=== PATIENT | female | born 1965 | race Caucasian/White ===

== ENCOUNTER 2016-10-03 16:14 | Emergency (ER) | payer OTHER ==
[~2016-10-03] VITALS: Ht 157.5 cm; Wt 54.4 kg
--- NOTE | 2016-10-03 17:14 | Emergency Room Report ---
History of Present Illness General Chief Complaint: Skin Rash/Abscess Source: Patient Present Illness HPI 50YOF walk-in with 1 week of "bites" to neck, torso, upper/lower extremities. No sick contacts at home Doesnt remember seeing insect Denies fever/chills Scratched ones on arms and "popped." Denies vesicles, blisters Denies recent Abx Allergies: Coded Allergies: No Known Allergies (Unverified , 10/03/16) Patient History Past Medical History: none Past Surgical History: none Pertinent Family History: none Social History: Denies: alcohol use, drug use, smoking Now: No Immunizations: UTD Reviewed Nursing Documentation: PMH: Agreed, PSxH: Agreed Nursing Documentation-PMH Hx Asthma: Yes Review of Systems All Other Systems: negative except mentioned in HPI Physical Exam Vital Signs Date Time Temp Pulse Resp B/P Pulse Ox O2 Delivery O2 Flow Rate FiO2 10/03/16 16:17 98.2 65 14 107/66 100 Room Air Sp02 EP Interpretation: reviewed, normal General Appearance: normal inspection, well appearing, no apparent distress, alert, GCS 15, non-toxic Head: normocephalic, atraumatic Eyes: bilateral eye EOMI, bilateral eye PERRL ENT: normal ENT inspection, hearing grossly normal, normal voice Neck: normal inspection, full range of motion, supple, no bony tend Respiratory: normal inspection, lungs clear, normal breath sounds, no respiratory distress, no retraction, no wheezing Cardiovascular #1: regular rate, rhythm, no edema Gastrointestinal: normal inspection, normal bowel sounds, non tender, soft, no guarding, no hernia Genitourinary: no CVA tenderness Musculoskeletal: normal inspection, back normal, normal range of motion, Vincenzo' s Sign negative Neurologic: normal inspection, alert, oriented x3, responsive, dobby looms pegger III-XII nml as tested, motor strength/tone normal, speech normal Psychiatric: normal inspection, judgement/insight normal, mood/affect normal Skin: normal inspection, normal color, warm/dry, palpation normal, other - Multiple areas of singular raised erythema to back of right shoulder, bilateral lower extremities with excoriations Medical Decision Making Diagnostic Impression: Primary Impression: Rash and other nonspecific skin eruption ER Course Likely allergic reaction to insect bites No blisters, vesicles Afebrile Patient doesnt want Abx and I agree, localized reaction, not really cellulitic and less likely abscess Advised OTC bendaryl, ice PMD followup as needed DC Last Vital Signs Date Time Temp Pulse Resp B/P Pulse Ox O2 Delivery O2 Flow Rate FiO2 10/03/16 16:17 98.2 65 14 107/66 100 Room Air Status: improved Disposition: HOME, SELF-CARE Condition: Improved Patient Instructions: Pruritus Additional Instructions: - Insect bite allergic reaction - Take benadryl as needed for itch, swelling - Also apply ice to affected areas to reduce swelling - You are NOT contagious or infectious to others. MACEY SRIVASTAVA M.D. Oct 03, 2016 17:13
[2016-10-03 17:20] VITALS: BP 107/66
[2016-10-03 17:22] VITALS: BP 107/66
== END 2016-10-03 17:10 | disposition home or self-care (01) ==
LOC: EMR 16:40
DX: R21 Rash and other nonspecific skin eruption (principal); J45.909 Unspecified asthma, uncomplicated
CPT/HCPCS: 99282

== ENCOUNTER 2016-10-17 22:08 | Emergency (ER) | payer OTHER ==
[~2016-10-17] VITALS: Ht 160 cm; Wt 49.9 kg
[2016-10-17 22:40] VITALS: BP 101/55
[2016-10-17] MEDS ORDERED: ANTI-ITCH56 GM TP (22:48)
[2016-10-17] MEDS ORDERED: PERMETHRIN60 GM TOPIC (22:48)
[2016-10-17 23:00] VITALS: BP 101/55
--- NOTE | 2016-10-23 05:43 | Emergency Room Report ---
History of Present Illness General Chief Complaint: Skin Rash/Abscess Source: Patient Present Illness HPI Patient's 50-year-old female who presented for increased generalized rash. The patient had gradual onset of symptoms. Rash as described as itchy in nature. This appear to be predominantly on her extremities. Previous prescription and had not been effective. She had not been having any fever. She denied any prior history of immunocompromise. She denied any other complaints this time. She denied any difficulty breathing. Allergies: Coded Allergies: No Known Allergies (Unverified , 10/03/16) Patient History Past Medical History: see triage record Reviewed Nursing Documentation: PMH: Agreed, PSxH: Agreed Nursing Documentation-PMH Past Medical History: No History, Except For Hx Asthma: Yes Review of Systems All Other Systems: negative except mentioned in HPI Physical Exam Vital Signs Date Time Temp Pulse Resp B/P Pulse Ox O2 Delivery O2 Flow Rate FiO2 10/17/16 22:30 97.9 68 16 98/45 100 Room Air General Appearance: well appearing, no apparent distress, alert, GCS 15, thin Head: normocephalic, atraumatic ENT: hearing grossly normal, normal voice Neck: full range of motion, supple Respiratory: no respiratory distress, speaking full sentences Cardiovascular #1: normal inspection Gastrointestinal: normal inspection Musculoskeletal: normal inspection, back normal, no calf tenderness Neurologic: normal inspection, alert, oriented x3, responsive, cutter grinder III-XII nml as tested, normal gait Psychiatric: mood/affect normal Skin: rash - slight papular rash to extremities with excoriations Medical Decision Making Diagnostic Impression: Primary Impression: Dermatitis ER Course Patient presented for for skin rash. Differential diagnosis included was not limited to Earl-Jamaal syndrome, scabies, urticaria, erythema multiforme, contact dermatitis. Patient's benign exam and does not appear to require any further imaging or laboratory testing at this time. The patient was given a prescription for topical steroids as well as permethrin cream. The patient appears to have some evidence of a distribution consistent with scabies. The patient was advised followup with primary care physician for reexamination. The patient was also advised to return if she began having any concerning signs or symptoms. Last Vital Signs Date Time Temp Pulse Resp B/P Pulse Ox O2 Delivery O2 Flow Rate FiO2 10/17/16 23:00 97.8 78 15 101/55 100 Room Air Status: improved Disposition: HOME, SELF-CARE Condition: Stable Scripts Permethrin* (ELIMITE*) 60 Gm Cream..g. 1 APPLIC TOPIC ONCE, #1 TUBE 0 Refills Apply cream from head to toe; leave on for 8-14 hours before washing off with water Prov: Christian Martinez 10/17/16 Hydrocortisone 2% Cream (ANTI-ITCH 2% CREAM) Y Cr 56 GM TP TWICE A DAY, #30 GM Prov: Christian Martinez 10/17/16 Referrals: [facility],REFERRING (PCP) Patient Instructions: Christian De La Cruz Oct 23, 2016 05:42
== END 2016-10-17 23:00 | disposition home or self-care (01) ==
LOC: EMR 22:57
DX: L30.9 Dermatitis, unspecified (principal)
CPT/HCPCS: 99284

== ENCOUNTER 2017-01-07 18:01 | Emergency (ER) | payer OTHER ==
[~2017-01-07] VITALS: Ht 160 cm; Wt 49.9 kg
[~2017-01-07 18:01] MED LIST: ANTI-ITCH56 GM TP; PERMETHRIN60 GM TOPIC
[2017-01-07 19:16] VITALS: BP 102/68
--- NOTE | 2017-01-07 19:21 | Emergency Room Report ---
History of Present Illness General Chief Complaint: General Complaint Source: Patient Present Illness HPI 51-year-old female presents to the emergency department complaining of difficulty sleeping for months. Patient states she had previous diagnosis of insomnia and was prescribed Ambien however she currently does not have medical insurance and therefore cannot be seen for her sleeping disorder. Patient states she has had increased amount of stress and is currently going through divorce. Patient dates she has had multiple trials of sleeping medications in the past and only Anaplanien worked for her. Patient denies SI, HI or substance use. Denies CP, Palpitations, LOC, AMS, dizziness, Changes in Vision, Sensation , paresthesias, or a sudden severe headache. Allergies: Coded Allergies: No Known Allergies (Unverified , 10/03/16) Patient History Past Medical History: see triage record Past Surgical History: none Pertinent Family History: none Now: No Immunizations: UTD Reviewed Nursing Documentation: PMH: Agreed, PSxH: Agreed Nursing Documentation-PMH Past Medical History: No History, Except For Hx Asthma: Yes Review of Systems All Other Systems: negative except mentioned in HPI Physical Exam Vital Signs Date Time Temp Pulse Resp B/P (MAP) Pulse Ox O2 Delivery O2 Flow Rate FiO2 01/07/17 18:15 98.2 70 18 102/68 99 Room Air Sp02 EP Interpretation: reviewed, normal General Appearance: no apparent distress, alert, GCS 15, non-toxic Head: normocephalic, atraumatic Eyes: bilateral eye normal inspection, bilateral eye PERRL ENT: hearing grossly normal, normal voice Neck: full range of motion Respiratory: lungs clear, normal breath sounds, speaking full sentences Cardiovascular #1: regular rate, rhythm Rectal: deferred Musculoskeletal: back normal, gait/station normal, normal range of motion Neurologic: alert, oriented x3, responsive, motor strength/tone normal, sensory intact, normal gait, speech normal Psychiatric: judgement/insight normal, memory normal, mood/affect normal, no suicidal/homicidal ideation Skin: normal color, no rash, warm/dry, well hydrated Medical Decision Making PA Attestation Dr. Martinez is my supervising Physician whom patient management has been discussed with. Diagnostic Impression: Primary Impression: Insomnia due to stress ER Course 51-year-old female presents to the emergency department complaining of difficulty sleeping for months. Patient states she had previous diagnosis of insomnia and was prescribed Ambien however she currently does not have medical insurance and therefore cannot be seen for her sleeping disorder. Patient states she has had increased amount of stress and is currently going through divorce. Patient dates she has had multiple trials of sleeping medications in the past and only Fatemehien worked for her. Patient denies SI, HI or substance use. Denies CP, Palpitations, LOC, AMS, dizziness, Changes in Vision, Sensation , paresthesias, or a sudden severe headache. Ddx considered but are not limited to: drug seeking, OD, insomnia, SI just to name a few. Vital signs: are WNL, pt. is afebrile H&PE are most consistent with need for medication refill. ORDERS: none required at this time, the diagnosis is clinical ED INTERVENTIONS: None required at this time. -Discussed with patient that it is recommended she be evaluated and medically managed by a primary care physician or psychiatric provider who can safely prescribe her sleeping aids, later basis. gave [facility] Information. DISCHARGE: At this time pt. is stable for d/c to home. Will provide printed patient care instructions, and any necessary prescriptions. Care plan and follow up instructions have been discussed with the patient prior to discharge. Last Vital Signs Date Time Temp Pulse Resp B/P (MAP) Pulse Ox O2 Delivery O2 Flow Rate FiO2 01/07/17 19:16 98.2 18 102/68 99 Room Air 01/07/17 18:15 70 Disposition: HOME, SELF-CARE Condition: Stable Scripts Hydroxyzine Pamoate* (VISTARIL*) 50 Mg Capsule 50 MG ORAL QHS, #15 TAB 0 Refills Prov: Afia Casillas 01/07/17 Referrals: [facility],REFERRING (PCP) Patient Instructions: Insomnia Additional Instructions: Take medications as directed. Follow up with a Primary Care Provider Or Psychiatric Provider in 3-5 days , even if your symptoms have resolved. --Please review list of primary care clinics, if you do not already have a primary care provider, Review [facility] information. Return sooner to ED if new symptoms occur, or current symptoms become worse. Do not drink alcohol, drive, or operate heavy machinery while taking VISTARIL / Hydroxyzine as this may cause drowsiness. - Please note that this Emergency Department Report was dictated using DishOpinionresolution expert technology software, occasionally this can lead to erroneous entry secondary to interpretation by the dictation equipment. Afia Casillas Jan 07, 2017 19:21
[2017-01-07] MEDS ORDERED: VISTARIL50 MG ORAL (19:24)
[2017-01-07 19:35] VITALS: BP 102/68
== END 2017-01-07 19:35 | disposition home or self-care (01) ==
LOC: EMR 18:58
DX: G47.00 Insomnia, unspecified (principal); F43.9 Reaction to severe stress, unspecified; J45.909 Unspecified asthma, uncomplicated
CPT/HCPCS: 99283

== ENCOUNTER 2017-04-04 08:27 | Emergency (ER) | payer OTHER ==
[~2017-04-04] VITALS: Ht 160 cm; Wt 54.4 kg
[~2017-04-04 08:27] MED LIST changes: +VISTARIL50 MG ORAL
[2017-04-04] MEDS ORDERED: FOSAMAX70 MG ORAL (08:33)
--- NOTE | 2017-04-04 08:54 | Emergency Room Report ---
History of Present Illness General Chief Complaint: Sore Throat Source: Patient Present Illness HPI Patient presents with complaints of sore throat Patient reports that sore throat has been ongoing since Wednesday Pain with swallowing 06/19 Denies any fevers or chills denies any posterior neck pain denies any photophobia Denies any chest pain or shortness of breath As his symptoms have persisted over the weekend she was concerned and presents Allergies: Coded Allergies: No Known Allergies (Unverified , 10/03/16) Patient History Past Medical History: see triage record Pertinent Family History: none Reviewed Nursing Documentation: PMH: Agreed, PSxH: Agreed Nursing Documentation-PMH Hx Asthma: Yes Review of Systems All Other Systems: negative except mentioned in HPI Physical Exam Vital Signs Date Time Temp Pulse Resp B/P (MAP) Pulse Ox O2 Delivery O2 Flow Rate FiO2 04/04/17 08:29 98.4 96 16 93/47 99 Room Air Sp02 EP Interpretation: reviewed, normal General Appearance: well appearing, no apparent distress Head: normocephalic, atraumatic Eyes: bilateral eye PERRL, bilateral eye EOMI ENT: no angioedema, normal voice, uvula midline, pharyngeal erythema Neck: supple Respiratory: chest non-tender, lungs clear Cardiovascular #1: normal peripheral pulses, regular rate, rhythm Gastrointestinal: non tender Musculoskeletal: normal inspection Neurologic: alert, oriented x3, responsive Skin: normal color, no rash Lymphatic: other - Submental lymphadenopathy is appreciated Medical Decision Making Diagnostic Impression: Primary Impression: Pharyngitis ER Course Patient's evaluation appears to be in line with pharyngitis Given the redness and the discomfort patient is placed on antibiotics No signs of any retropharyngeal abscess or peritonsillar abscess at this time and the patient is stable for close followup Last Vital Signs Date Time Temp Pulse Resp B/P (MAP) Pulse Ox O2 Delivery O2 Flow Rate FiO2 04/04/17 08:29 98.4 96 16 93/47 99 Room Air Status: unchanged Disposition: HOME, SELF-CARE Condition: Stable Additional Instructions: Patient is provided with the discharge instructions notified to follow up with primary doctor in the next 2-3 days otherwise return to the er with any worsening symptoms. Please note that this report is being documented using J[employer] technology. This can lead to erroneous entry secondary to incorrect interpretation by the dictating instrument. DARYL MARES D.O. Apr 04, 2017 08:54
[2017-04-04] MEDS ORDERED: IBUPROFEN600 MG ORAL (08:55)
[2017-04-04] MEDS ORDERED: AUGMENTIN 875-1 EAC1 ORAL (08:55)
[2017-04-04 09:00] VITALS: BP 110/56
== END 2017-04-04 09:00 | disposition home or self-care (01) ==
LOC: EMR 09:00
DX: J02.9 Acute pharyngitis, unspecified (principal)
CPT/HCPCS: 99282

== ENCOUNTER 2017-04-29 17:46 | Emergency (ER) | payer OTHER ==
[~2017-04-29] VITALS: Ht 160 cm; Wt 61.2 kg
[~2017-04-29 17:46] MED LIST changes: +AUGMENTIN 875-1 EAC1 ORAL; +FOSAMAX70 MG ORAL; +IBUPROFEN600 MG ORAL
[2017-04-29 18:06] VITALS: BP 102/61
--- NOTE | 2017-04-29 18:28 | Emergency Room Report ---
History of Present Illness General Chief Complaint: Sore Throat Source: Patient, Medical Record Present Illness HPI 51-year-old female patient presents to ER for a sore throat and nasal congestion for the past 2 days. Patient complaining of fatigue and dry cough. 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 Patient reports she was seen in ER last month for similar symptoms; patient states she was treated with antibiotics at that time for relief of symptoms; patient requesting antibiotics today. Patient denies fever, nausea, vomiting, chest pain, SOB, rash, diarrhea. Allergies: Coded Allergies: No Known Allergies (Unverified , 10/03/16) Patient History Past Medical History: see triage record Past Surgical History: unable to obtain Social History: Denies: smoking, alcohol use, drug use Last Menstrual Period: 1 year ago Immunizations: UTD Reviewed Nursing Documentation: PMH: Agreed, PSxH: Agreed Nursing Documentation-PMH Past Medical History: No History, Except For Hx Asthma: Yes Review of Systems All Other Systems: negative except mentioned in HPI Physical Exam Vital Signs Date Time Temp Pulse Resp B/P (MAP) Pulse Ox O2 Delivery O2 Flow Rate FiO2 04/29/17 18:06 98.2 97 18 102/61 95 Room Air Sp02 EP Interpretation: reviewed, normal General Appearance: no apparent distress, alert, GCS 15, non-toxic Head: normocephalic, atraumatic Eyes: bilateral eye normal inspection, bilateral eye PERRL, bilateral eye EOMI ENT: hearing grossly normal, normal pharynx, no angioedema, normal voice, TMs + canals normal, uvula midline, moist mucus membranes, nasal congestion, pharyngeal erythema Neck: full range of motion, supple/symm/no masses Respiratory: chest non-tender, lungs clear, normal breath sounds, no rhonchi, no respiratory distress, no retraction, no accessory muscle use, no wheezing, speaking full sentences Cardiovascular #1: regular rate, rhythm, no edema, no JVD, no murmur Musculoskeletal: back normal, gait/station normal, normal range of motion, non- tender Neurologic: alert, oriented x3, responsive, motor strength/tone normal, sensory intact, speech normal Psychiatric: memory normal, mood/affect normal Skin: normal color, no rash, warm/dry, well hydrated Lymphatic: no adenopathy Medical Decision Making PA Attestation is my supervising physician with whom patient management has been discussed with. Diagnostic Impression: Primary Impression: Sore throat ER Course Pt presents to ED c/o sore throat and cough. DDX considered but are not limited to influenza, viral URI, pneumonia, strep throat, rhinitis, sinusitis, peritonsillar abscess. VITAL SIGNS are WNL, patient is afebrile. ORDERS: None required at this time, diagnosis is clinical ED INTERVENTIONS: Dexamethasone IM DISCHARGE: At this time pt is stable for d/c to home. -Rx given for Motrin/Ibuprofen for fever/pain. -Rx given for Augmentin. -Rx given for Claritin-D. Patient to take medications as instructed. Patient informed of likely viral etiology of disease but provided with antibiotics following repeated requests. Will provide with patient care instructions and any necessary prescriptions. Care plan and follow-up instructions provided. Patient instructed to follow-up with primary care provider in 3 - 5 days. Patient questions asked and answered. ER precautions given. Patient instructed to return to ER immediately for any new or worsening of symptoms including but not limited to increasing SOB, persistent fever. Last Vital Signs Date Time Temp Pulse Resp B/P (MAP) Pulse Ox O2 Delivery O2 Flow Rate FiO2 04/29/17 18:06 98.2 97 18 102/61 95 Room Air Disposition: HOME, SELF-CARE Condition: Stable Scripts Loratadine/Pseudoephedrine (CLARITIN-D 12 HOUR TABLET) 1 Each Tab.er.12h 1 TAB ORAL EVERY 12 HOURS for 7 Days, #14 TAB Prov: Bar Chaudhary.A. 04/29/17 Ibuprofen* (MOTRIN*) 600 Mg Tablet 600 MG ORAL Q8H Y for For Pain, #30 TAB 0 Refills Prov: Bar Chaudhary P.A. 04/29/17 Amoxicillin/Potassium Clav 875-125* (AUGMENTIN 875-125 TABLET*) 1 Each Tablet 1 TAB ORAL TWICE A DAY for 7 Days, #14 TAB Prov: Bar Chaudhary.A. 04/29/17 Patient Instructions: Sore Throat, Tonsillitis Additional Instructions: Patient to take medications as instructed. Will provide with patient care instructions and any necessary prescriptions. Care plan and follow-up instructions provided. Patient instructed to follow-up with primary care provider in 3 5 days. Patient questions asked and answered. ER precautions given. Patient instructed to return to ER immediately for any new or worsening of symptoms including but not limited to increasing SOB, persistent fever. Bar Chaudhary. Apr 29, 2017 18:28
[2017-04-29] MEDS ORDERED: IBUPROFEN600 MG ORAL (18:37)
[2017-04-29] MEDS ORDERED: CLARITIN-D 121 EAC1 ORAL (18:37)
[2017-04-29] MEDS ORDERED: AUGMENTIN 875-1 EAC1 ORAL (18:37)
[2017-04-29] MEDS ORDERED: Dexamethasone 4mg/ml vial IM ONE (18:45)
[2017-04-29 19:03] VITALS: BP 111/72
== END 2017-04-29 19:10 | disposition home or self-care (01) ==
LOC: EMR 19:09
DX: J02.9 Acute pharyngitis, unspecified (principal); J45.909 Unspecified asthma, uncomplicated
CPT/HCPCS: 96372; 99284; J1100

== ENCOUNTER 2017-12-04 19:48 | Emergency (ER) | payer OTHER ==
[~2017-12-04] VITALS: Ht 160 cm; Wt 56.7 kg
[~2017-12-04 19:48] MED LIST changes: +CLARITIN-D 121 EAC1 ORAL
[2017-12-04 20:40] VITALS: BP 114/64
[2017-12-04] MEDS ORDERED: Isovue-300 100ml vial INJ PRN (21:00)
[2017-12-04] MEDS ORDERED: Morphine Sulfate 2mg/ml Inj(IV/IM USE ONLY) IVP ONE (21:00)
[2017-12-04] MEDS ORDERED: Ketorolac 30mg Inj IV ONE (21:00)
[2017-12-04 21:03] LABS: APPEARANCE,URINE CLEAR; BILIRUBIN, URINE NEGATIVE (NEGATIVE); COLOR,URINE PALE YELLOW; GLUCOSE, URINE (UA) NEGATIVE (NEGATIVE); KETONES,URINE NEGATIVE (NEGATIVE); LEUKOCYTE ESTERASE ,URINE 2+ (NEGATIVE); NITRITE,URINE NEGATIVE (NEGATIVE); PH,URINE 7 (4.5-8.0); PROTEIN,URINE NEGATIVE (NEGATIVE); UROBILINOGEN,URINE NORMAL MG/DL (0.0-1.0)
[2017-12-04 21:21] LABS: BASOPHILS % (AUTO) 1.7 % (0.0-2.0); EOSINOPHILS % (AUTO) 1.5 % (0.0-3.0); LYMPHOCYTES % (AUTO) 34.9 % (20.0-45.0); MEAN CORPUSCULAR VOLUME 96 FL (80-99); MONOCYTES % (AUTO) 8.3 % (1.0-10.0); NEUTROPHILS % (AUTO) 53.6 % (45.0-75.0); PLATELET COUNT 258 K/UL (150-450); RED BLOOD COUNT 3.98 M/UL (4.20-5.40); RED CELL DISTRIBUTION WIDTH 12.3 % (11.6-14.8); WHITE BLOOD COUNT 9.2 K/UL (4.8-10.8)
--- NOTE | 2017-12-04 22:11 | Diagnostic Imaging Report ---
EXAM: XR Chest, 1 View CLINICAL HISTORY: ABD PAIN TECHNIQUE: Frontal view of the chest. COMPARISON: No relevant prior studies available. FINDINGS: Lungs: Unremarkable. No consolidation. Pleural space: Unremarkable. No pneumothorax. Heart: Unremarkable. No cardiomegaly. Mediastinum: Unremarkable. Bones/joints: Unremarkable. IMPRESSION: Normal chest x-ray.
[2017-12-04] MEDS ORDERED: Morphine Sulfate 4mg/ml Inj (IV USE ONLY) IVP ONE ×2 (22:15→22:30)
[2017-12-04 22:24] LABS: ALANINE AMINOTRANSFERASE 33 U/L (12-78); ALBUMIN 3.9 G/DL (3.4-5.0); ALBUMIN/GLOBULIN RATIO 0.8 (1.0-2.7); ALKALINE PHOSPHATASE 61 U/L (46-116); ANION GAP 6 mmol/L (5-15); ASPARTATE AMINO TRANSFERASE 26 U/L (15-37); BILIRUBIN,TOTAL 0.3 MG/DL (0.2-1.0); BLOOD UREA NITROGEN 23 mg/dL (7-18); CALCIUM 8.9 MG/DL (8.5-10.1); CARBON DIOXIDE 31 MMOL/L (21-32); CHLORIDE 105 MMOL/L (98-107); CREATININE 0.9 MG/DL (0.55-1.30); POTASSIUM 4.3 MMOL/L (3.5-5.1); SODIUM 142 MMOL/L (136-145)
[2017-12-04] MEDS ORDERED: cefTRIAXone 1 GM in NS 55 ML IVPB ONE (23:00)
--- NOTE | 2017-12-04 23:02 | Emergency Room Report ---
History of Present Illness General Chief Complaint: Abdominal Pain Source: Patient Present Illness HPI Patient presents with abdominal pain that began yesterday. His been intermittent. At times is severe. Denies any nausea or diarrhea. She's been moving her bowels without any difficulty. The pain is more in the lower abdomen and more on the left-hand side. At this time it's severe and 10/10. She denies any dysuria. The patient's never had pain like this before. Her last period was a year ago. She wants to make sure that she is not at this time. She has never had such severe pain before. No cough, sore throat, chest pain. No h/o renal stones. Allergies: Coded Allergies: No Known Allergies (Unverified , 10/03/16) Patient History Past Medical History: see triage record Past Surgical History: other - breast augmentation Social History: Denies: smoking, alcohol use, drug use Social History Narrative Last Menstrual Period: 1 YEAR AGO Reviewed Nursing Documentation: PMH: Agreed; PSxH: Agreed Nursing Documentation-PMH Hx Asthma: Yes Physical Exam Vital Signs Date Time Temp Pulse Resp B/P (MAP) Pulse Ox O2 Delivery O2 Flow Rate FiO2 12/04/17 20:10 98.1 87 18 114/64 99 Room Air 98.1 Sp02 EP Interpretation: reviewed, normal General Appearance: well appearing, no apparent distress, GCS 15 Head: normocephalic Eyes: bilateral eye normal inspection, bilateral eye PERRL ENT: moist mucus membranes Neck: supple Respiratory: lungs clear, normal breath sounds Cardiovascular #1: regular rate, rhythm Cardiovascular #2: 2+ radial (R) Gastrointestinal: no rebound, guarding - Left lower quadrant - also some referred pain to that area, tenderness Genitourinary: no CVA tenderness Musculoskeletal: back normal, gait/station normal, normal range of motion Neurologic: alert, oriented x3, grossly normal Psychiatric: anxious Skin: normal inspection, warm/dry Medical Decision Making Diagnostic Impression: Primary Impression: Abdominal pain Qualified Codes: R10.32 - Left lower quadrant pain Additional Impression: UTI (urinary tract infection) Qualified Codes: N30.00 - Acute cystitis without hematuria ER Course Patient presents with 2 days of a significant abdominal pain. Differential includes appendicitis, diverticulitis, UTI, pyelonephritis, irritable bowels syndrome, renal stone amongst others. Based on exam diverticulitis is high on the list. Patient will be evaluated with EKG, chest x-ray and labs. Because of the significance the pain she will undergo CT the abdomen and pelvis with oral and IV contrast. Treated with IV hydration and analgesia. EKG without injury. Chest x-ray unremarkable. Labs with normal white count without left shift. Urinalysis with pyuria. Rocephin is given for the pyuria. Patient required 2 more doses of morphine because of the severity of the pain. After 10 mg of morphine and the CT was obtained. She was resting more comfortably. DT unremarkable. Consider possible passed renal stone. However, the initial exam was more consistent with intra-abdominal process. Discussed with Dr. Do. Transfer [facility]. Laboratory Tests Test 12/04/17 20:20 12/04/17 21:02 Urine Color Pale yellow Urine Appearance Clear Urine pH 7 (4.5-8.0) Urine Specific Rhodes 1.005 (1.005-1.035) Urine Protein Negative (NEGATIVE) Urine Glucose (UA) Negative (NEGATIVE) Urine Ketones Negative (NEGATIVE) Urine Blood 2+ (NEGATIVE) H Urine Nitrite Negative (NEGATIVE) Urine Bilirubin Negative (NEGATIVE) Urine Urobilinogen Normal MG/DL (0.0-1.0) Urine Leukocyte Esterase 2+ (NEGATIVE) H Urine RBC 2-4 /HPF (0 - 2) H Urine WBC 10-15 /HPF (0 - 2) H Urine Squamous Epithelial Cells Many /LPF (NONE/OCC) H Urine Amorphous Sediment Few /LPF (NONE) H Urine Bacteria Few /HPF (NONE) Urine HCG, Qualitative Negative (NEGATIVE) White Blood Count 9.2 K/UL (4.8-10.8) Red Blood Count 3.98 M/UL (4.20-5.40) L Hemoglobin 13.0 G/DL (12.0-16.0) Hematocrit 38.0 % (37.0-47.0) Mean Corpuscular Volume 96 FL (80-99) Mean Corpuscular Hemoglobin 32.7 PG (27.0-31.0) H Mean Corpuscular Hemoglobin Concent 34.3 G/DL (32.0-36.0) Red Cell Distribution Width 12.3 % (11.6-14.8) Platelet Count 258 K/UL (150-450) Mean Platelet Volume 6.5 FL (6.5-10.1) Neutrophils (%) (Auto) 53.6 % (45.0-75.0) Lymphocytes (%) (Auto) 34.9 % (20.0-45.0) Monocytes (%) (Auto) 8.3 % (1.0-10.0) Eosinophils (%) (Auto) 1.5 % (0.0-3.0) Basophils (%) (Auto) 1.7 % (0.0-2.0) Prothrombin Time 10.2 SEC (9.30-11.50) Prothrombin Time INR 1.0 (0.9-1.1) PTT 27 SEC (23-33) Sodium Level 142 MMOL/L (136-145) Potassium Level 4.3 MMOL/L (3.5-5.1) Chloride Level 105 MMOL/L (98-107) Carbon Dioxide Level 31 MMOL/L (21-32) Anion Gap 6 mmol/L (5-15) Blood Urea Nitrogen 23 mg/dL (7-18) H Creatinine 0.9 MG/DL (0.55-1.30) Estimate Glomerular Filtration Rate > 60 mL/min (>60) Glucose Level 100 MG/DL (74-106) Calcium Level 8.9 MG/DL (8.5-10.1) Total Bilirubin 0.3 MG/DL (0.2-1.0) Aspartate Amino Transferase (AST) 26 U/L (15-37) Alanine Aminotransferase (ALT) 33 U/L (12-78) Alkaline Phosphatase 61 U/L (46-116) Total Protein 8.7 G/DL (6.4-8.2) H Albumin 3.9 G/DL (3.4-5.0) Globulin 4.8 g/dL Albumin/Globulin Ratio 0.8 (1.0-2.7) L Lipase 230 U/L (73-393) EKG Diagnostic Results Rate: normal Rhythm: NSR ST Segments: no acute changes Rhythm Strip Diag. Results EP Interpretation: yes Rhythm: NSR, no PVC's, no ectopy Chest X-Ray Diagnostic Results Chest X-Ray Diagnostic Results : Chest X-Ray Ordered: Yes # of Views/Limited/Complete: 1 View Indication: Other EP Interpretation: Yes Interpretation: no consolidation, no effusion, no pneumothorax Impression: No acute disease Last Vital Signs Date Time Temp Pulse Resp B/P (MAP) Pulse Ox O2 Delivery O2 Flow Rate FiO2 12/05/17 02:25 98.1 18 114/64 99 Room Air 98.1 12/04/17 20:10 87 Status: improved Disposition: XFER [facility] Condition: Serious Referrals: [facility],REFERRING (PCP) Jonathan Martinez M.D. Dec 04, 2017 23:02
[2017-12-04 23:20] VITALS: BP 121/70
--- NOTE | 2017-12-05 | Diagnostic Imaging Report ---
EXAM: CT Abdomen and Pelvis With Intravenous Contrast CLINICAL HISTORY: ABD PAIN TECHNIQUE: Axial computed tomography images of the abdomen and pelvis with intravenous contrast. CTDI is 0.15, 0.15, 11.9 mGy and DLP is 562 mGy-cm. One or more of the following dose reduction techniques were used: automated exposure control, adjustment of the mA and/or kV according to patient size, use of iterative reconstruction technique. COMPARISON: No relevant prior studies available. FINDINGS: Lung bases: Dependent atelectasis. ABDOMEN: Liver: Unremarkable. Gallbladder and bile ducts: Unremarkable. Pancreas: Unremarkable. Spleen: Unremarkable. Adrenals: Unremarkable. Kidneys and ureters: Cysts within both kidneys. Stomach and bowel: Unremarkable. PELVIS: Appendix: Appendix is unremarkable. Bladder: Urinary bladder is markedly distended. Reproductive: Unremarkable as visualized. ABDOMEN and PELVIS: Intraperitoneal space: Trace free fluid in the pelvis. Bones/joints: No acute fracture. No dislocation. Soft tissues: Bilateral breast augmentation. Vasculature: Unremarkable. No abdominal aortic aneurysm. Lymph nodes: Unremarkable. IMPRESSION: No acute findings.
[2017-12-05 00:55] VITALS: BP 119/72
[2017-12-05 02:25] VITALS: BP 114/64
--- NOTE | 2017-12-05 13:43 | Cardiology Report ---
APPROVED REPORT EKG Measurement Heart [id number] VT [id number] Normal sinus rhythm Normal ECG
== END 2017-12-05 02:30 | disposition short-term general hospital (02) ==
LOC: EMR 20:50
DX: N30.00 Acute cystitis without hematuria (principal); R10.32 Left lower quadrant pain; J45.909 Unspecified asthma, uncomplicated
CPT/HCPCS: 36415; 71045; 74177; 80053; 81003; 81025; 83690; 85025; 85610; 85730; 87086; 93005; 96361; 96365; 96375; 96376; 99285; J0696; J1885; J2270; J2405; Q9967